=== PATIENT | female | born 1995 | race American Indian/Alaskan Native ===

== ENCOUNTER 2019-08-27 00:33 | Emergency (ER) | payer SELFPAY ==
[2019-08-27] MEDS ORDERED: HYDROcodone/ACETAMINOPHEN 10-325MG TAB PO ONE (03:23)
[2019-08-27 04:11] LABS: Hematocrit 40.1 % (30.3-42.9); Hemoglobin 13.1 gm/dl (10.1-14.3); Mean Corpuscular HGB Conc 33 % (30-34); Mean Corpuscular Volume 85 fl (79-97); Platelet Count 300 K/mm3 (140-440); Red Blood Count 4.71 M/mm3 (3.65-5.03); Red Cell Distribution Width 13.9 % (13.2-15.2)
--- NOTE | 2019-08-27 04:17 | Emergency Department Report ---
ED Female HPI - General Chief complaint: Abdominal Pain Time Seen by Provider: 08/27/19 03:22 Source: patient Mode of arrival: Ambulatory Limitations: No Limitations - History of Present Illness Initial comments: h/o endometriosis, presents to ER with pelvic pain, nausea, on menstrual cycles which usually exacerbates her endometriosis. no fever, chills or night sweats. no dysuria. -: Gradual - Related Data Previous Rx's Medication Instructions Recorded Last Taken Type Cyclobenzaprine [Flexeril] 10 mg PO TID PRN #15 tablet 08/27/19 Unknown Rx Allergies Allergy/AdvReac Type Severity Reaction Status Date / Time No Known Allergies Allergy Verified 08/30/19 21:43 ED Review of Systems ROS: Stated complaint: Other details as noted in HPI Comment: All other systems reviewed and negative Eyes: denies: eye pain ENT: denies: ear pain Gastrointestinal: denies: nausea, vomiting Genitourinary: denies: urgency, dysuria Skin: denies: rash Neurological: denies: headache ED Past Medical Hx - Past Medical History Previous Medical History?: No - Medications Home Medications: Home Medications Medication Instructions Recorded Confirmed Last Taken Type Cyclobenzaprine [Flexeril] 10 mg PO TID PRN #15 tablet 08/27/19 Unknown Rx ED Physical Exam - General Limitations: No Limitations General appearance: alert, in no apparent distress - Head Head exam: Present: atraumatic, normocephalic - Eye Eye exam: Present: normal appearance, PERRL, EOMI Pupils: Present: normal accommodation - ENT ENT exam: Present: normal exam, normal orophraynx - Neck Neck exam: Present: normal inspection - Respiratory Respiratory exam: Present: normal lung sounds bilaterally - Cardiovascular Cardiovascular Exam: Present: regular rate, normal rhythm - GI/Abdominal GI/Abdominal exam: Present: soft, normal bowel sounds - External exam: Present: other (patient refused pelvic exam) - Neurological Exam Neurological exam: Present: alert, oriented X3, CN II-XII intact ED Course Vital Signs 08/27/19 04:30 Pulse Rate 81 Respiratory 16 Rate O2 Sat by Pulse 100 Oximetry ED Medical Decision Making - Lab Data Result diagrams: 08/27/19 03:23 - Medical Decision Making norco 5 mg po given, pain resolves wants to go home. refused to give ua. Critical care attestation.: If time is entered above; I have spent that time in minutes in the direct care of this critically ill patient, excluding procedure time. ED Disposition Clinical Impression: Endometriosis Disposition: DC-01 TO HOME OR SELFCARE Is pt being admited?: No Does the pt Need Aspirin: No Condition: Stable Instructions: Abdominal Pain (ED) Prescriptions: Cyclobenzaprine [Flexeril] 10 mg PO TID PRN #15 tablet PRN Reason: Muscle Spasm Referrals: PRIMARY CARE, [Primary Care Provider] - 3-5 Days
== END 2019-08-27 04:35 | disposition home or self-care (01) ==
LOC: ED 00:33
DX: R10.2 Pelvic and perineal pain (principal)
CPT/HCPCS: 36415; 84703; 85027

== ENCOUNTER 2019-08-30 21:38 | Emergency (ER) | payer MEDICAID ==
[2019-08-30 21:45] VITALS: BP 109/77
--- NOTE | 2019-08-30 21:52 | Event Note ---
ED Screening Note Date of service: 08/30/19 Time: 21:49 ED Screening Note: This is a 24 y.o. F. that presents to the ER with pelvic pain since menses started. Reports history of endometriosis. States started on flexeril yesterday which is not controlling pain. This initial assessment/diagnostic orders/clinical plan/treatment(s) is/are subject to change based on patients health status, clinical progression and re- assessment by fellow clinical providers in the ED. Further treatment and workup at subsequent clinical providers discretion. Patient/guardian urged not to elope from the ED as their condition may be serious if not clinically assessed and managed. Initial orders include: Labs
[2019-08-30] MEDS ORDERED: IBUPROFEN 600 MG TAB PO ONE (23:40)
--- NOTE | 2019-08-31 00:15 | Emergency Department Report ---
<IRINA العراقي - Last Filed: 08/30/19 23:37> ED Female HPI - General Chief complaint: Abdominal Pain Stated complaint: ENDOMETIOSIS PAIN Time Seen by Provider: 08/30/19 21:45 Source: patient Mode of arrival: Ambulatory Limitations: No Limitations - History of Present Illness Initial comments: 24-year-old -Citizen Of [place] female presents to the emergency room complaining of pelvic pain since she started her menses on 08/26/2019. Patient states that she has endometrial pain when her menses starts. Patient was seen here 08/27/2019 and was prescribed Flexeril. It is reported that patient started Flexeril yesterday without much relief of her pain. Patient reports that she was placed on other medications when she was in [place] but does not know the name. Onset/Timin -: days(s) Location: suprapubic Radiation: non-radiating Severity scale (0 -10): 8 Quality: cramping, sharp, stabbing Consistency: constant Improves with: none Worsens with: menstrual period Are you Now?: No Associated Symptoms: denies other symptoms - Related Data Previous Rx's Medication Instructions Recorded Last Taken Type Cyclobenzaprine [Flexeril] 10 mg PO TID PRN #15 tablet 08/27/19 Unknown Rx Allergies Allergy/AdvReac Type Severity Reaction Status Date / Time No Known Allergies Allergy Verified 08/30/19 21:43 ED Review of Systems Comment: All other systems reviewed and negative ED Past Medical Hx - Past Medical History Previous Medical History?: Yes Additional medical history: anemia, endometerosis - Surgical History Past Surgical History?: No - Medications Home Medications: Home Medications Medication Instructions Recorded Confirmed Last Taken Type Cyclobenzaprine [Flexeril] 10 mg PO TID PRN #15 tablet 08/27/19 Unknown Rx ED Physical Exam - General Limitations: No Limitations General appearance: alert, in no apparent distress - Head Head exam: Present: atraumatic, normocephalic - ENT ENT exam: Present: mucous membranes moist - Neck Neck exam: Present: normal inspection, full ROM - Neurological Exam Neurological exam: Present: alert, oriented X3, normal gait - Psychiatric Psychiatric exam: Present: normal affect, normal mood - Skin Skin exam: Present: warm, dry, intact, normal color. Absent: rash ED Medical Decision Making - Medical Decision Making 24-year-old -Citizen Of [place] female presents to the emergency room complaining of pelvic pain since she started her menses on 08/26/2019. Patient states that she has endometrial pain when her menses starts. Patient was seen here 08/27/2019 and was prescribed Flexeril. It is reported that patient started Flexeril yesterday without much relief of her pain. Patient reports that she was placed on other medications when she was in [place] but does not know the name. ED Disposition Clinical Impression: Endometriosis Disposition: Z-07 ELOPED Is pt being admited?: No Does the pt Need Aspirin: No Condition: Stable Instructions: Abdominal Pain (ED) Referrals: PRIMARY CARE, [Primary Care Provider] - 3-5 Days <SASKIA TINSLEY - Last Filed: 09/04/19 01:06> ED Review of Systems ROS: Stated complaint: ENDOMETIOSIS PAIN Other details as noted in HPI ED Course Vital Signs 08/30/19 21:43 Temperature 98.4 F Respiratory 18 Rate Blood Pressure 109/77 Critical care attestation.: If time is entered above; I have spent that time in minutes in the direct care of this critically ill patient, excluding procedure time. ED Disposition Is pt being admited?: No Does the pt Need Aspirin: No
== END 2019-08-30 23:00 | disposition left against medical advice (07) ==
LOC: ED 21:38
DX: R10.2 Pelvic and perineal pain (principal); D64.9 Anemia, unspecified
CPT/HCPCS: 36415; 84703